=== PATIENT | female | born 1995 | race Hispanic/Latino ===

== ENCOUNTER 2017-10-16 19:45 | Emergency (ER) | payer OTHER ==
[~2017-10-16] VITALS: Ht 144.8 cm; Wt 70.3 kg
[~2017-10-16 19:45] MED LIST: NAPROSYN500 M1 PO
[2017-10-16 19:48] VITALS: BP 137/88
--- NOTE | 2017-10-16 20:40 | RADIOLOGY REPORT ---
EXAMINATION: 1. RADIOGRAPHS RIGHT ANKLE 2. RADIOGRAPHS RIGHT FOOT CLINICAL INFORMATION: Fall. COMPARISON: Radiographs right tibia/fibula 10/14/2017 TECHNIQUE: 3 views of the right ankle and 3 views of the right foot were obtained. FINDINGS: Visualized portions of the distal tibia and fibula demonstrate no fracture. The ankle mortise is maintained. Mild diffuse soft tissue swelling of the ankle. No ankle joint effusion. Bones of the midfoot are well aligned. No metatarsal or phalangeal fracture. IMPRESSION: No fracture or dislocation of the right ankle or right foot. Mild soft tissue swelling of the right ankle.
--- NOTE | 2017-10-16 21:20 | ED ANKLE/FOOT INJURY COMPLAINT ---
History of Present Illness General Chief Complaint: Lower Extremity Problems Stated Complaint: SEEN HERE 2 DAYS AGO, RIGHT L PAIN NO BETTER PERPT Source: patient Exam Limitations: no limitations Vital Signs & Intake/Output Vital Signs & Intake/Output Vital Signs Date Time Temp Pulse Resp B/P B/P Pulse O2 O2 Flow FiO2 Mean Ox Delivery Rate 10/17 1947 97.8 115 18 137/88 95 Room Air Allergies Coded Allergies: MDX - Latex (LATEX) ([place]EN [place]ANDS 09/03/15) Reconcile Medications Naproxen (Naprosyn) 500 MG TABLET 1 TAB PO BID PRN pain Tramadol HCl 50 MG TABLET 1-2 TAB PO BIDP PRN PAIN Triage Note: PT TO TRIAGE WITH R FOOT AND ANKLE PAIN. PT SEEN HERE 2 DAYS AGO S/P FALLING DOWN STAIRS AND HAD XRAYS DONE OF R LEG, BUT SINCE THE FOOT HAS SWOLLEN UP AND BEEN MORE PAINFUL. +PEDAL PULSES, +SWELLING. PT RX NAPROXEN BUT HAS NOT TAKEN IT. MEDICATED WITH MOTRIN IN TRIAGE. Triage Nurses Notes Reviewed? yes Duration: day(s): (cf), constant, continues in ED Timing: recent history Pain/Injury Location: Right: Foot, Ankle. Method of Injury: fall : No Patient currently breastfeeds: No HPI: 22-year-old female comes into the emergency room for further evaluation of right foot and ankle pain. Patient reports that she twisted her right ankle the other day when she was going on since. She had hit her fleming. She came in for further evaluation of primarily her fleming at that time and did not realize she was having so much ankle pain which she started to experience following day. She comes back in for further evaluation. Denies any other new associated symptoms or new traumas. (Grady Corcoran) Past History Travel History Traveled to [place] past 21 day No Medical History Any Pertinent Medical History? see below for history Neurological: NONE EENT: NONE Cardiovascular: NONE Respiratory: NONE Gastrointestinal: NONE Hepatic: NONE Renal: NONE Musculoskeletal: NONE Psychiatric: NONE Endocrine: NONE Blood Disorders: NONE Cancer(s): NONE MANAGER LIGHTING/Reproductive: NONE Surgical History Surgical History: non-contributory Psychosocial History What is your primary language Greek Tobacco Use: Current Daily Use Daily Tobacco Use Amount/Type: => 5 Cigarettes daily ETOH Use: occasional use Family History Hx Contributory? No (Grady Corcoran) Review of Systems Review of Systems Constitutional: Reports: no symptoms. EENTM: Reports: no symptoms. Respiratory: Reports: no symptoms. Cardiovascular: Reports: no symptoms. GI: Reports: no symptoms. Genitourinary: Reports: no symptoms. Musculoskeletal: Reports: see HPI. Skin: Reports: no symptoms. Neurological/Psychological: Reports: no symptoms. Hematologic/Endocrine: Reports: no symptoms. Immunologic/Allergic: Reports: no symptoms. All Other Systems: Reviewed and Negative (Grady Corcoran) Physical Exam Physical Exam General Appearance: well developed/nourished, mild distress Head: atraumatic Eyes: Bilateral: normal appearance. Ears, Nose, Throat: normal ENT inspection, hearing grossly normal Neck: normal inspection Cardiovascular/Respiratory: no respiratory distress Back: normal inspection Leg/Knee/Thigh Left: normal inspection Ankle Right: soft tissue tenderness, swelling, tenderness, limited range of motion Foot Right: limited range of motion, soft tissue tenderness Neuro/Vascular: normal motor function, normal sensation Psychiatric: awake, alert, oriented x 3 Skin: intact, normal color, warm/dry (Grady Corcoran) Progress Differential Diagnosis: fracture, dislocation, sprain, contusion Plan of Care: see below Diagnostic Imaging: Viewed by Me: Radiology Read. Discussed w/RAD: Radiology Read. Radiology Impression: PATIENT: FRANK DAHL PRESENT AGE: 22 PATIENT ACCOUNT NO: [id number] : 95 LOCATION: [facility] ORDERING PHYSICIAN: Burt Samano DO (TBS) SERVICE DATE: 10/16/17 EXAM TYPE: RAD - XRY-FOOT COMPLETE, R; XRY-TWO VIEW RIGHT ANKLE EXAMINATION: 1. RADIOGRAPHS RIGHT ANKLE 2. RADIOGRAPHS RIGHT FOOT CLINICAL INFORMATION: Fall. COMPARISON: Radiographs right tibia/fibula 10/14/2017 TECHNIQUE: 3 views of the right ankle and 3 views of the right foot were obtained. FINDINGS: Visualized portions of the distal tibia and fibula demonstrate no fracture. The ankle mortise is maintained. Mild diffuse soft tissue swelling of the ankle. No ankle joint effusion. Bones of the midfoot are well aligned. No metatarsal or phalangeal fracture. IMPRESSION: No fracture or dislocation of the right ankle or right foot. Mild soft tissue swelling of the right ankle. DICTATED BY: Jared Vargas MD DATE/TIME DICTATED:10/16/172032 ACCOUNTING SUPERVISOR:LENIN DATE/ TIME TRANSCRIBED:10/16/172032 CONFIDENTIAL, DO NOT COPY WITHOUT APPROPRIATE AUTHORIZATION. <Electronically signed in Other Vendor System> SIGNED BY: Jared Vargas MD 10/16/172039 (Grady Corcoran) Departure Departure Disposition: HOME OR SELF CARE Condition: Stable Clinical Impression Primary Impression: Right ankle sprain Referrals: Devang MANCINI,Alvaro Cui (PCP/Family) Meng Madison MD Additional Instructions: Ice. Rest. Ibuprofen. Take tramadol for pain. Follow-up with orthopedic doctor. weightbearing as tolerated. Departure Forms: Customer Survey General Discharge Information Prescriptions: Current Visit Scripts Tramadol HCl 1-2 TAB PO BIDP PRN PAIN #15 TAB Comments 10/16/2017 9:33:57 PM Patient clinically looks well. In no apparent distress. Nontoxic-appearing. Symptoms are most consistent with ankle sprain. Follow-up with PCP. Return if any other concerns worsening symptoms. Patient understands and agrees with plan of care. (Grady Corcoran) PA/ENGINEER [employer]PR[employer] Co-Sign Statement Statement: ED Attending supervision documentation- [] I saw and evaluated the patient. I have also reviewed all the pertinent lab results and diagnostic results. I agree with the findings and the plan of care as documented in the PA's/ENGINEER BYPRODUCT's documentation. [X] I have reviewed the ED Record and agree with the PA's/ENGINEER BYPRODUCT's documentation. [] Additions or exceptions (if any) to the PAs/ENGINEER BYPRODUCT's note and plan are summarized below: [] (Asad MANCINI,Jonathan Stacy) Procedures Splinting Location: right ankle Manual Alignment Performed: No Pre-Made Type: ankle stirrups Splint Applied By: splint applied by me Pre-Proc Neuro Vasc Exam: normal Post-Proc Neuro Vasc Exam: normal (Grady Corcoran)
[2017-10-16] MEDS ORDERED: TRAMADOL HCL50 M1 PO (21:24)
== END 2017-10-16 21:57 ==
LOC: ERH 19:45
DX: S93.401A Sprain of unspecified ligament of right ankle, initial encounter (principal); W10.9XXA Fall (on) (from) unspecified stairs and steps, initial encounter; Y92.9 Unspecified place or not applicable; Y93.9 Activity, unspecified; F17.210 Nicotine dependence, cigarettes, uncomplicated; F10.10 Alcohol abuse, uncomplicated
CPT/HCPCS: 73600-RT; 73630-RT